=== PATIENT | male | born 1995 | race Caucasian/White ===

== ENCOUNTER 2023-10-26 15:40 | Emergency (ER) | payer BC ==
--- NOTE | 2023-10-26 15:43 | ERPHSYRPT ---
- History of Present Illness Time Seen by Provider: 10/26/23 15:43 Historian: patient Exam Limitations: no limitations Physician History: 28 year old white male sent to ed from clinic for worsening pain in rlq abd pain in last 4 days. present intermittently for 2 years. no pcp. no meds. nkda. no n/v/d. no fevers. Timing/Duration: intermittent (for 2 years.), worse (sx worse in the last 4 days) Quality: sharpness Abdominal Pain Onset Location: RLQ Pain Radiation: no radiation Severity of Pain-Max: moderate Severity of Pain-Current: mild (to mod) Modifying Factors: Improves With: nothing. Worsens With: vomiting Associated Symptoms: denies symptoms, vomiting, No loss of appetite, No nausea Previous symptoms: same symptoms as today, no recent treatment Allergies/Adverse Reactions: No Known Drug Allergies Allergy (Unverified 10/26/23 16:17) Home Medications: No Reportable Medications [No Reported Medications] 10/26/23 [History] Travel Risk - International Travel Have you traveled outside of the country in past 3 weeks: No - Emerging Infectious Disease Are you exhibiting symptoms associated with any current EIDs: No - Review of Systems Constitutional: No Symptoms Eyes: No Symptoms Ears, Nose, & Throat: No Symptoms Respiratory: No Symptoms Cardiac: No Symptoms Abdominal/Gastrointestinal: Abdominal Pain (rlq), No Nausea, No Vomiting, No Diarrhea, No Constipation, No Appetite Changes Genitourinary Symptoms: No Symptoms Musculoskeletal: No Symptoms Skin: No Symptoms Neurological: No Symptoms Psychological: No Symptoms Endocrine: No Symptoms Hematologic/Lymphatic: No Symptoms Immunological/Allergic: No Symptoms All Other Systems: Reviewed and Negative - Past Medical History Pertinent Past Medical History: No - Nursing Vital Signs Nursing Vital Signs: Initial Vital Signs Blood Pressure 120/79 10/26/23 16:00 O2 Sat by Pulse Oximetry 100 10/26/23 16:00 Pain Scale Pain Intensity 6 - Physical Exam General Appearance: no apparent distress, alert Eye Exam: PERRL/EOMI, eyes nml inspection Ears, Nose, Throat Exam: normal ENT inspection, moist mucous membranes Neck Exam: normal inspection, non-tender, supple, full range of motion Respiratory Exam: normal breath sounds, lungs clear, airway intact, No chest tenderness, No respiratory distress Cardiovascular Exam: regular rate/rhythm, normal heart sounds, normal peripheral pulses Gastrointestinal/Abdomen Exam: soft, normal bowel sounds, tenderness (rlq), guarding (rlq), No rebound Rectal Exam: not done Back Exam: normal inspection, normal range of motion, No CVA tenderness, No vertebral tenderness Extremity Exam: normal inspection, normal range of motion, pelvis stable Neurologic Exam: alert, oriented x 3, cooperative, steam hand II-XII nml as tested, normal mood/affect, nml cerebellar function, nml station & gait, sensation nml Skin Exam: normal color, warm, No dry Lymphatic Exam: No adenopathy SpO2 Interpretation: normal O2 Delivery: Room Air - Course Nursing assessment & vital signs reviewed: Yes Ordered Tests: Active Orders 24 hr Category Date Time Status IV Insertion STAT Care 10/26/23 16:11 Active ABDOMEN AND PELVIS W/0 CONTRAS [CT] Stat Exams 10/26/23 16:12 Completed AMYLASE Stat Lab 10/26/23 16:30 Completed CBC W DIFF Stat Lab 10/26/23 16:20 Completed CMP Stat Lab 10/26/23 16:30 Completed LIPASE Stat Lab 10/26/23 16:30 Completed UA W/RFX UR CULTURE Stat Lab 10/26/23 16:12 Ordered Lab/Rad Data: Laboratory Result Diagrams 10/26/23 16:20 10/26/23 16:30 Laboratory Results 10/26/23 10/26/23 Range/Units 16:30 16:20 WBC 7.3 (4.23-9.07) x10^3/uL RBC 4.74 (4.63-6.08) x10^6/uL Hgb 14.2 (13.7-17.5) g/dL Hct 40.7 (40.1-51.0) % MCV 85.9 (79.0-92.2) fL MCH 30.0 (25.7-32.2) pg MCHC 34.9 (32.3-36.5) g/dL RDW 12.1 (11.6-14.4) % Plt Count 266 (163-337) x10^3/uL MPV 8.1 L (9.4-12.4) fL Gran % 58.2 (34.0-67.9) % Immature Gran % (Auto) 0.4 (0.001-0.429) % Nucleat RBC Rel Count 0.0 (0.00-0.2) % Eos # (Auto) 0.08 (0.04-0.54) x10^3/uL Immature Gran # (Auto) 0.03 (0.001-0.031) x10^3u/L Absolute Lymphs (auto) 2.21 (1.32-3.57) x10^3/uL Absolute Monos (auto) 0.69 (0.30-0.82) x10^3/uL Absolute Nucleated RBC 0.00 (0.00-0.012) x10^3u/L Lymphocytes % 30.2 (21.8-53.1) % Monocytes % 9.4 (5.3-12.2) % Eosinophils % 1.1 (0.8-7.0) % Basophils % 0.7 (0.2-1.2) % Absolute Granulocytes 4.26 (1.78-5.38) x10^3/uL Basophils # 0.05 (0.01-0.08) x10^3/uL Sodium 140 (135-145) mmol/L Potassium 4.5 (3.5-5.1) mmol/L Chloride 102 (98-107) mmol/L Carbon Dioxide 31 H (22-30) mmol/L Anion Gap 12.0 (5-15) MEQ/L BUN 12 (9-20) mg/dL Creatinine 0.83 (0.66-1.25) mg/dL Estimated GFR 123.0 ML/MIN Glucose 92 (74-106) mg/dL Calcium 9.8 (8.4-10.2) mg/dL Total Bilirubin 0.50 (0.2-1.3) mg/dL AST 30 (17-59) U/L ALT 19 (0-50) U/L Alkaline Phosphatase 44 (38-126) U/L Serum Total Protein 8.4 H (6.3-8.2) g/dL Albumin 4.9 (3.5-5.0) g/dL Amylase 66 (30-110) U/L Lipase 60 (23-300) U/L - Progress Progress: unchanged, pain not gone completely Progress Note: 10/26/23 18:02 my medical decision making and the assignment of mod complexity to this pts medical issue today is based upon review of pmh, review of med list, review of drug allergy list, hpi and physical findings on exam diff dx includes but not limited to abd wall pain, appendicitis, colitis, pancreatitis 10/26/23 18:58 i interpreted the patients lab results. no acute or emergent medical issues ct abd/pelvis interpreted by radiologist. impression states normal findings without evidence of acute intraabd/pelvic pathology Counseled pt/family regarding: lab results, diagnosis, need for follow-up, rad results Medical Desision Making - Diagnostic Testing Diagnostic test were ordered, analyzed, and reviewed by me: Yes Radiological Interpretation: Reviewed by me, Teleradiologist Report - Risk of complications Minimal Risk: Minimal risk of morbidity - Departure Departure Disposition: Home Clinical Impression: Chronic abdominal pain Condition: Stable Critical Care Time: No Referrals: DOCTOR,NO FAMILY [Primary Care Provider] - Follow up/PCP as directed Additional Instructions: drink plenty of fluids. use tylenol and/or ibuprofen for pain control. follow up with primary care provider for further management in 5 to 7 days Forms: Work/School Release Form
[2023-10-26 16:15] VITALS: BP 120/79; PULSE 59; RESP 16; O2SAT 100
[2023-10-26 16:36] LABS: Absolute Neutrophil Ct (ANC) 4.26 x10^3/uL (1.78-5.38); BASOPHIL % 0.7 % (0.2-1.2); Basophil (Absolute #) 0.05 x10^3/uL (0.01-0.08); Eosinophil % 1.1 % (0.8-7.0); Eosinophil (Absolute #) 0.08 x10^3/uL (0.04-0.54); Hematocrit 40.7 % (40.1-51.0); Hemoglobin 14.2 g/dL (13.7-17.5); IMMATURE GRAN # 0.03 x10^3u/L (0.001-0.031); IMMATURE GRAN % 0.4 % (0.001-0.429); Lymphocyte (Absolute #) 2.21 x10^3/uL (1.32-3.57); Lymphocytes % 30.2 % (21.8-53.1); Mean Cell Volume 85.9 fL (79.0-92.2); Mean Corpuscular Hgb Concent. 34.9 g/dL (32.3-36.5); Mean Platelet Volume 8.1 fL (9.4-12.4); Monocyte (Absolute #) 0.69 x10^3/uL (0.30-0.82); Monocytes % 9.4 % (5.3-12.2); Neutrophil % 58.2 % (34.0-67.9); Platelet Count 266 x10^3/uL (163-337); Red Blood Count 4.74 x10^6/uL (4.63-6.08); Red Cell Distribution Width 12.1 % (11.6-14.4); White Blood Count 7.3 x10^3/uL (4.23-9.07)
[2023-10-26 16:52] LABS: ALBUMIN 4.9 g/dL (3.5-5.0); BILIRUBIN,TOTAL 0.5 mg/dL (0.2-1.3); Calcium 9.8 mg/dL (8.4-10.2); Creatinine 1 0.83 mg/dL (0.66-1.25); Potassium 4.5 mmol/L (3.5-5.1); Total Protein 8.4 g/dL (6.3-8.2)
--- NOTE | 2023-10-26 18:38 | XRAY ---
CLINICAL HISTORY: rlq abd pain COMPARISON: None. TECHNIQUE: Contrast-enhanced CT of the abdomen and pelvis was performed, with the following protocol: axial images with, and reconstructed coronal and sagittal images. Intravenous contrast was administered. One of the following dose reduction techniques was utilized for this exam: Automated exposure control, adjustment of the mA and/or kV according to patient size, and use of iterative reconstruction. FINDINGS: Abdomen: Liver: Normal in size, shape, and density. No focal lesions, cysts, or masses were identified. Hepatic vasculature and biliary ducts are unremarkable. Gallbladder and Biliary System: The gallbladder is normal in size and shape. No wall thickening, pericholecystic fluid, or gallstones were identified. The common bile duct is normal in caliber without dilation. Pancreas: Pancreatic head, body, and tail are visualized and appear normal in size and density. No pancreatic masses or calcifications were noted. The pancreatic duct is not dilated. Spleen: Normal in size, shape, and density. No splenic lesions or masses were identified. Kidneys and Adrenal Glands: Both kidneys are normal in size, shape, and position. Cortical thickness is within normal limits. No renal calculi or hydronephrosis. Adrenal glands are unremarkable with no evidence of masses or hyperplasia. Pelvis: Urinary Bladder: Normal in contour and wall thickness. No intraluminal lesions identified. Prostate: Normal in size and contour. Seminal Vesicles: Normal in size and appearance. No abnormalities noted. Bowel: The visualized bowel loops are normal in caliber and appearance. Normal appendix. No evidence of bowel obstruction or wall thickening. Rectum and Sigmoid Colon: Normal wall thickness and no evidence of mass. Peritoneal and Retroperitoneal Structures: No free fluid or abnormal fluid collections were identified within the abdomen or pelvis. No lymphadenopathy was noted. Bones: No fracture or bony lesion. IMPRESSION: CT of the abdomen and pelvis demonstrates normal findings without evidence of acute intra-abdominal pathology. Electronically Signed by: Ronald Glover MD. (10/26/2023 18:35:00 EDT)
== END 2023-10-26 19:07 | disposition home or self-care (01) ==
LOC: ED 15:40
DX: G89.29 Other chronic pain (principal); R10.31 Right lower quadrant pain
CPT/HCPCS: 36000; 36415; 74176; 80053; 82150; 83690; 85025; 99283